=== PATIENT | female | born 1990 | race Caucasian/White ===

== ENCOUNTER 2018-05-10 18:44 | Emergency (ER) | payer OTHER ==
[2018-05-10 18:51] VITALS: BP 109/67; PULSE 78; TEMP 98.2; BMI 25.1
[2018-05-10] MEDS ORDERED: METOCLOPRAMIDE HCL INJECTION 10 MG/2 ML VIAL IVPUSH ONE (19:30)
[2018-05-10] MEDS ORDERED: SODIUM CHLORIDE 1,000 ML IV STA (19:30)
[2018-05-10] MEDS ORDERED: ACETAMINOPHEN 1000 MG/100 ML VIAL (NON FORMULARY) IVPB ONE (19:30)
--- NOTE | 2018-05-10 19:36 | PDOC ---
Attending Attestation - HPI HPI: 05/10/18 19:43 The patient is a 27 year old 2 months female A0, with no significant past medical history, who presents to the emergency department with , sudden onset left sided suprapubic pain with an associated bitemporal headache. She denies any abnormal vaginal discharge or vaginal bleeding. Allergies: NKDA Next PIECE HAND Appt: 05/17 <Davis Gordon - Last Filed: 05/10/18 19:43> - Resident Resident Name: Ryan Desir - ED Attending Attestation I have performed the following: I have examined & evaluated the patient, The case was reviewed & discussed with the resident, I agree w/resident's findings & plan, Exceptions are as noted - Physicial Exam PE: 05/10/18 21:54 Agree with detailed exam as documented by resident - Medical Decision Making 05/10/18 21:55 Well appearing 27F, , no bleeding, discharge, masses, adnexal tenderness r/o ectopic, torsion, less likely infectious TVUS showing IUP labs unremarkable, Rh+ TVUS with iup dc with heel builder f/u <Bryon Andrew - Last Filed: 05/10/18 21:56> Attestations - Attestations 05/10/18 19:44 Documentation prepared by Davis Gordon, acting as er medical technician for Bryon Andrew MD. <Davis Gordon - Last Filed: 05/10/18 19:43>
[2018-05-10] MEDS ORDERED: METOCLOPRAMIDE HCL INJECTION 10 MG/2 ML VIAL ONE ×2 (19:52→20:26)
[2018-05-10] MEDS ORDERED: ACETAMINOPHEN INJECTION 100 ML IVPB ONE (19:53)
[2018-05-10 20:11] LABS: BASO % 0.3 % (0-2.0); EOS % 0.7 % (0-4.5); HEMATOCRIT 37.5 % (32.4-45.2); HEMOGLOBIN 12.5 GM/dL (10.7-15.3); LYMPH % 23.7 % (8-40); MCH 28.6 pg (25.7-33.7); MCHC 33.4 g/dl (32.0-36.0); MEAN CELL VOLUME 85.5 fl (80-96); MEAN PLT VOLUME 9.3 fl (7.5-11.1); MONO % 5.3 % (3.8-10.2); PLATELET COUNT 187 K/MM3 (134-434); RBC 4.38 M/mm3 (3.60-5.2); RDW 13.5 % (11.6-15.6); WHITE BLOOD COUNT 7.6 K/mm3 (4.0-10.0)
--- NOTE | 2018-05-10 20:21 | PDOC ---
History of Present Illness - General Chief Complaint: Pain Stated Complaint: TWO MONTHS/FEVER Time Seen by Provider: 05/10/18 19:14 History Source: Patient Exam Limitations: No Limitations - History of Present Illness Initial Comments: 05/10/18 20:15 Patient is a 27F with history of appendectomy here today complaining of lower abdominal pain that started yesterday. Patient states she took a home test 4 days ago. Patient denies vaginal bleeding, vaginal discharge. Patient was recently tested for STDs, was normal. Has ob follow up on 05/[address] Trupti Steele. Endorses nausea, vomited yesterday. Denies fevers, endorses chills. Patient also complains of a headache worse in her bilateral temples with no vision changes. Last bowel movement yesterday. Past History - Past Medical History Allergies/Adverse Reactions: Allergies Allergy/AdvReac Type Severity Reaction Status Date / Time No Known Allergies Allergy Verified 05/10/18 18:51 Home Medications: Ambulatory Orders NK [No Known Home Medication] 05/10/18 COPD: No - Reproductive History Is Patient Now?: Yes Therapeutic (s) & number: No - Suicide/Smoking/Psychosocial Hx Smoking History: Never smoked Information on smoking cessation initiated: No Hx Alcohol Use: No Drug/Substance Use Hx: No Review of Systems - Review of Systems Able to Perform ROS?: Yes Comments:: 05/10/18 20:21 GENERAL/CONSTITUTIONAL: No fever or chills. No weakness. HEAD, EYES, EARS, NOSE AND THROAT: No change in vision. No sore throat. CARDIOVASCULAR: No chest pain or shortness of breath RESPIRATORY: No cough, wheezing, or hemoptysis. GASTROINTESTINAL: +nausea, +vomiting, no diarrhea or constipation. GENITOURINARY: No dysuria, frequency, or change in urination. MUSCULOSKELETAL: No joint or muscle swelling or pain. No neck or back pain. SKIN: No rash NEUROLOGIC: +headache, no vertigo, loss of consciousness, or change in strength/ sensation. ALLERGIC/IMMUNOLOGIC: No hives or skin allergy. *Physical Exam - Vital Signs Last Vital Signs Temp Pulse Resp BP Pulse Ox 98.2 F 78 17 109/67 100 05/10/18 18:49 05/10/18 18:49 05/10/18 18:49 05/10/18 18:49 05/10/18 18:49 - Physical Exam Comments: 05/10/18 20:22 GENERAL: Awake, alert, and fully oriented, in no acute distress PELVIC: Normal external genitalia, no cmt, normal discharge, no blood, closed os , no adnexal masses/tenderness HEAD: No signs of trauma, normocephalic, atraumatic EYES: PERRLA, EOMI, sclera anicteric, conjunctiva clear ENT: Auricles normal inspection, hearing grossly normal, nares patent, oropharynx clear without exudates. Moist mucosa NECK: Normal ROM, supple, no lymphadenopathy, JVD, or masses LUNGS: No distress, speaks full sentences, clear to auscultation bilaterally HEART: Regular rate and rhythm, normal S1 and S2, no murmurs, rubs or gallops, peripheral pulses normal and equal bilaterally. ABDOMEN: Soft, mild suprapubic tenderness, normoactive bowel sounds. No guarding, no rebound. No masses EXTREMITIES: Normal inspection, Normal range of motion, no edema. No clubbing or cyanosis. NEUROLOGICAL: Cranial nerves II through XII grossly intact. Normal speech, normal gait, no focal sensorimotor deficits SKIN: Warm, Dry, normal turgor, no rashes or lesions noted. ED Treatment Course - LABORATORY CBC & Chemistry Diagram: 05/10/18 19:47 05/10/18 19:47 - RADIOLOGY Radiology Studies Ordered: Category Date Time Status TRANSVAGINAL US PREG [US] Stat Ultrasound 05/10/18 19:32 Ordered - Medications Given in the ED: ED Medications Discontinued Medications Generic Name Dose Route Start Last Admin Trade Name Darriusq PRN Reason Stop Dose Admin Acetaminophen 1,000 mg 05/10/18 19:30 05/10/18 19:59 Ofirmev Injection - IVPB 05/10/18 19:31 1,000 mg ONCE ONE Administration Metoclopramide HCl 10 mg 05/10/18 19:30 05/10/18 19:59 Reglan Injection - IVPUSH 05/10/18 19:31 10 mg ONCE ONE Administration Medical Decision Making - Medical Decision Making 05/10/18 20:23 Patient is 27F with history of appendectomy here today complaining of suprapubic abdominal pain. Vitals normal and stable. Mild tenderness on exam, normal pelvic. DDx includes, but is not limited to: ectopic, uti, ovarian cyst. Will treat with tylenol and reglan, fluids. Will evaluate with cbc, cmp, lipase , ua/uc, tvus, t&s. Likely discharge. 05/10/18 21:23 CBC normal. CMP normal. Lipase normal. UA normal. Transvaginal US shows IUP 10w0d, 2.2cm l ovarian cyst. Patient reassessed, feels well, asking to go home, nontender abdomen. Will discharge to OB follow up. *DC/Admit/Observation/Transfer Diagnosis at time of Disposition: , Abdominal pain - Discharge Dispostion Disposition: HOME Condition at time of disposition: Good Decision to Admit order: No - Referrals - Patient Instructions Printed Discharge Instructions: DI for Abdominal Pain -- Early Additional Instructions: Please follow up with your OBGYN doctor this week. Please return if you have any new, worsening or concerning symptoms, especially fever, increasing pain, and vomiting. Por favor josé un seguimiento con brizuela doctor OBGYN esta semana. Regrese si tiene sntomas nuevos, que empeoran o estn relacionados, especialmente fiebre, dolor en aumento y vmitos. - Post Discharge Activity
[2018-05-10 20:58] LABS: URINE APPEARANCE CLEAR; URINE BILIRUBIN NEGATIVE (NEGATIVE); URINE COLOR YELLOW; URINE GLUCOSE (UA) NEGATIVE (NEGATIVE); URINE KETONE NEGATIVE (NEGATIVE); URINE LEUK ESTERASE NEGATIVE (NEGATIVE); URINE NITRITE NEGATIVE (NEGATIVE); URINE PROTEIN NEGATIVE (NEGATIVE); URINE UROBILINOGEN 0.2 mg/dL (0.2-1.0)
[2018-05-10 21:11] LABS: ALBUMIN 3.6 g/dl (3.4-5.0); ALK PHOS 59 U/L (45-117); ANION GAP 10 MMOL/L (8-16); BILIRUBIN,TOTAL 0.2 mg/dL (0.2-1); BLOOD UREA NITROGEN 4 mg/dL (7-18); CALCIUM 8.9 mg/dL (8.5-10.1); CHLORIDE 104 mmol/L (98-107); CO2 23 mmol/L (21-32); CREATININE 0.4 mg/dL (0.55-1.3); GLUCOSE,RANDOM 87 mg/dL (74-106); LIPASE 120 U/L (73-393); POTASSIUM 3.8 mmol/L (3.5-5.1); SGOT/AST 10 U/L (15-37); SGPT/ALT 16 U/L (13-61); SODIUM 137 mmol/L (136-145); TOT PROT 7.3 g/dl (6.4-8.2)
--- NOTE | 2018-05-11 10:30 | EKG ---
Test Reason : Blood Pressure : / mmHG Vent. Rate : 063 BPM Atrial Rate : 063 BPM P-R Int : 154 ms QRS Dur : 068 ms QT Int : 448 ms P-R-T Axes : 066 022 017 degrees QTc Int : 458 ms NORMAL SINUS RHYTHM NORMAL ECG NO PREVIOUS ECGS AVAILABLE Confirmed by MEIR CHAVIRA MD ([id number]) on 05/11/2018 10:29:42 AM Referred By: Confirmed By:MEIR CHAVIRA MD
== END 2018-05-10 21:32 | disposition home or self-care (01) ==
LOC: JER 18:44
PROC: 3E033GC Introduction of Other Therapeutic Substance into Peripheral Vein, Percutaneous Approach (ICD-10-PCS; principal; 2018-05-10)
PROC: 3E033NZ Introduction of Analgesics, Hypnotics, Sedatives into Peripheral Vein, Percutaneous Approach (ICD-10-PCS; 2018-05-10)
DX: O26.891 Other specified pregnancy related conditions, first trimester (principal); O34.81 Maternal care for other abnormalities of pelvic organs, first trimester; N83.292 Other ovarian cyst, left side; Z3A.10 10 weeks gestation of pregnancy
CPT/HCPCS: 36415; 76801-TC; 80053; 81003; 83690; 84702; 85025; 86850; 86900; 86901; 87086; 93005; 93010; 99283-25; J0131; J7030

== ENCOUNTER 2018-07-13 17:01 | Emergency (ER) | payer OTHER ==
--- NOTE | 2018-07-13 17:20 | PDOC ---
History of Present Illness - General Chief Complaint: Pain Stated Complaint: ABD PAIN Time Seen by Provider: 07/13/18 17:20 History Source: Patient Exam Limitations: Language Barrier - History of Present Illness Initial Comments: 07/13/18 17:55 HPI/ROS performed with phone lead electrician [id number] 27 year old female with no PMH A0 presented to ED for left sided pelvic pain x2 days and headache x5 days. Pt stated her pelvic pain is intermittent, pressure like, no alleviating or aggravating factors, no radiation. Pt denied vaginal discharge, vaginal bleeding, dysuria, nausea, vomiting, diarrhea, constipation. Pt stated her headache has been constant, located to the front of her head, band like, gradual in onset, no aggravating or alleviating factors. Pt stated she has been taking tylenol for her headache with no relief. Pt has OB follow up at [facility] but does not know the name of her doctor. Allergies: NKDA PSH: appendectomy Past History - Past Medical History Allergies/Adverse Reactions: Allergies Allergy/AdvReac Type Severity Reaction Status Date / Time No Known Allergies Allergy Verified 07/13/18 17:21 Home Medications: Ambulatory Orders Clotrimazole [Clotrimazole-7] 45 gm VG DAILY #3 cream.appl 07/13/18 COPD: No - Reproductive History Therapeutic (s) & number: No - Suicide/Smoking/Psychosocial Hx Smoking History: Never smoked Hx Alcohol Use: No Drug/Substance Use Hx: No Review of Systems - Review of Systems Able to Perform ROS?: Yes Comments:: 07/13/18 17:58 General: denied fever, chills, generalized weakness. HEENT: denied sore throat, rhinorrhea, ear pain. Heart: denied chest pain, palpitations, syncope, diaphoresis. Respiratory: denied shortness of breath, cough, sputum production, hemoptysis. Abdomen: denied abdominal pain, nausea, vomiting, diarrhea, constipation, blood in stool. : admitted to pelvic pain. denied dysuria, increased urinary frequency, hematuria, urinary incontinence, flank pain. Back: denied back pain. Musculoskeletal: denied joint pain, muscle pain, joint swelling. Neurological: admitted to headache. denied dizziness, numbness, tingling, weakness. Skin: denied rash, laceration, abrasion. *Physical Exam - Physical Exam Comments: 07/13/18 17:59 Constitutional: Well-nourished, Well-developed, appearing stated age. HEENT: head is normocephalic, atraumatic. EOMI. PERRLA. Neck: supple. Full ROM. Heart: regular rhythm. no murmurs, rubs or gallops. Lungs: clear to auscultation bilaterally. no crackles, rhonchi or wheezing. no stridor. Abdomen: soft, nontender. normal bowel sounds. no rebound, guarding, masses. pelvic: normal external genitalia. hypervascularized cervix. cervical os closed. white cottage cheese like discharge. no CMT. left sided adnexal tenderness. Extremities: peripheral pulses intact. no lower extremity edema. Neurological: CN 2-12 grossly intact. moves all four extremities. Psych: awake, alert, oriented x3. follows commands. answers questions appropriately. ED Treatment Course - LABORATORY CBC & Chemistry Diagram: 07/13/18 19:35 07/13/18 17:28 Medical Decision Making - Medical Decision Making 07/13/18 18:00 27 year old female with above PMH presented to ED for left sided pelvic pain and headache. Initial Vital Signs Temp Pulse Resp BP Pulse Ox 97.6 F 81 16 98/70 100 07/13/18 17:05 07/13/18 17:05 07/13/18 17:05 07/13/18 17:05 07/13/18 17:05 Afebrile. No tachycardia. No tachypnea. Mild hypotension, consistent with . No hypoxia on room air. Labs ordered: CBC, CMP, lipase, UA/UC Imaging ordered: TVUS Medications ordered: normal saline 1000 cc bolus, tylenol IV, reglan 10 mg IV 07/13/18 19:12 CMP Sodium 136 mmol/L (136-145) 07/13/18 17:28 Potassium 3.7 mmol/L (3.5-5.1) 07/13/18 17:28 Chloride 106 mmol/L (98-107) 07/13/18 17:28 Carbon Dioxide 22 mmol/L (21-32) 07/13/18 17:28 Anion Gap 8 MMOL/L (8-16) 07/13/18 17:28 BUN 8 mg/dL (7-18) 07/13/18 17:28 Creatinine 0.4 mg/dL (0.55-1.3) L 07/13/18 17:28 Est GFR (CKD-EPI)AfAm 164.28 07/13/18 17:28 Est GFR (CKD-EPI)NonAf 141.74 07/13/18 17:28 Random Glucose 94 mg/dL (74-106) 07/13/18 17:28 Calcium 8.7 mg/dL (8.5-10.1) 07/13/18 17:28 Total Bilirubin 0.2 mg/dL (0.2-1) 07/13/18 17:28 AST 12 U/L (15-37) L 07/13/18 17:28 ALT 20 U/L (13-61) 07/13/18 17:28 Alkaline Phosphatase 45 U/L (45-117) 07/13/18 17:28 Total Protein 6.3 g/dl (6.4-8.2) L 07/13/18 17:28 Albumin 3.1 g/dl (3.4-5.0) L 07/13/18 17:28 Lipase 129 U/L (73-393) 07/13/18 17:28 No electrolyte abnormalities. No AGUILA. No transaminitis. Lipase within normal limits. TVUS report: Clinical information: 19 weeks , pelvic pain The exam demonstrates a single viable intrauterine gestation at approximately 19 weeks 0 days cardiac rate 158 BPM. Posterior placenta without previa. Amniotic fluid volume appears unremarkable on a qualitative basis. The partially visualized structures demonstrate no gross sonographic abnormality. The cervix appears to be closed measuring approximately 3.6 cm in length. Impression : Single viable intrauterine gestation at approximately 19 weeks 0 days. No definite sonographic abnormality is identified. Urine Test Results Urine Color Yellow 07/13/18 17:33 Urine Appearance Clear 07/13/18 17:33 Urine pH 7.5 (5.0-8.0) D 07/13/18 17:33 Ur Specific Stanton 1.006 (1.010-1.035) L 07/13/18 17:33 Urine Protein Negative (NEGATIVE) 07/13/18 17:33 Urine Glucose (UA) Negative (NEGATIVE) 07/13/18 17:33 Urine Ketones Negative (NEGATIVE) 07/13/18 17: Urine Blood Negative (NEGATIVE) 07/13/18 17: Urine Nitrite Negative (NEGATIVE) 07/13/18 17:33 Urine Bilirubin Negative (NEGATIVE) 07/13/18 17:33 Ur Leukocyte Esterase Negative (NEGATIVE) 07/13/18 17:33 No UTI. No hematuria. No proteinuria. 07/13/18 19:56 CBC WBC 8.7 K/mm3 (4.0-10.0) 07/13/18 19:35 Corrected WBC (auto) Cancelled 07/13/18 17:28 RBC 3.64 M/mm3 (3.60-5.2) 07/13/18 19:35 Hgb 10.6 GM/dL (10.7-15.3) L 07/13/18 19:35 Hct 31.5 % (32.4-45.2) L D 07/13/18 19:35 MCV 86.6 fl (80-96) 07/13/18 19:35 MCH 29.1 pg (25.7-33.7) 07/13/18 19:35 MCHC 33.6 g/dl (32.0-36.0) 07/13/18 19:35 RDW 13.5 % (11.6-15.6) 07/13/18 19:35 Plt Count 170 K/MM3 (134-434) 07/13/18 19:35 MPV 9.1 fl (7.5-11.1) 07/13/18 19:35 Absolute Neuts (auto) 6.5 K/mm3 (1.5-8.0) 07/13/18 19:35 Neutrophils % 74.9 % (42.8-82.8) 07/13/18 19:35 Lymphocytes % 17.9 % (8-40) D 07/13/18 19:35 Monocytes % 6.1 % (3.8-10.2) 07/13/18 19:35 Eosinophils % 0.7 % (0-4.5) 07/13/18 19:35 Basophils % 0.4 % (0-2.0) 07/13/18 19:35 Nucleated RBC % 0 % (0-0) 07/13/18 19:35 Platelet Estimate Cancelled 07/13/18 17:28 Platelet Comment Cancelled 07/13/18 17:28 No leukocytosis. No anemia. 07/13/18 21:31 Pt reported 0/10 headache, requesting discharge. Pt discharged. *DC/Admit/Observation/Transfer Diagnosis at time of Disposition: Headache, Pelvic pain, Vaginal yeast infection - Discharge Dispostion Condition at time of disposition: Stable Decision to Admit order: No - Prescriptions Prescriptions: Clotrimazole [Clotrimazole-7] 45 gm VG DAILY #3 cream.appl - Referrals - Patient Instructions Printed Discharge Instructions: DI for Vaginal Yeast Infection, DI for Headache Additional Instructions: You were seen today for pelvic pain and headache. You lab work was normal. Your ultrasound was normal. Follow up with your OBGYN within 3 days. Your care is not complete until you follow up. Bring all paperwork to your appointment. You likely have a vaginal yeast infection. I have sent a prescription to your pharmacy. Take Tylenol over the counter for your pain. Take as advised on label. Return to the Emergency Department for increasing pain, weakness, numbness, chest pain, shortness of breath, neck stiffness, vaginal bleeding, vaginal discharge or any other new, worsening or concerning symptoms. Hoy te vieron por dolor plvico y dolor de baltazar. Tu trabajo de laboratorio era normal. Brizuela ultrasonido fue normal. Amalia un seguimiento con brizuela gineclogo dentro de los 3 briones. Brizuela atencin no est completa hasta que amalia un seguimiento. Traiga toda la documentacin a brizuela raúl. Es probable que tenga uri infeccin vaginal por levaduras. He enviado uri receta a brizuela farmacia. Dawn Tylenol sobre el mostrador para brizuela dolor. Nirav stephie se indica en la etiqueta. Regrese al Departamento de Emergencias para aumentar el dolor, la debilidad, el adormecimiento, el dolor en el pecho, la falta de aliento, la rigidez del mariah , el sangrado vaginal, el flujo vaginal o cualquier otro sntoma nuevo o que empeore. Print Language: [place]ICAN CITIZEN - Post Discharge Activity Forms/Work/School Notes: Back to Work
[2018-07-13 17:21] VITALS: BMI 24.1
[2018-07-13] MEDS ORDERED: ACETAMINOPHEN 1000 MG/100 ML VIAL (NON FORMULARY) IVPB ONE (17:22)
[2018-07-13] MEDS ORDERED: SODIUM CHLORIDE 1,000 ML IV STA (17:22)
[2018-07-13] MEDS ORDERED: ACETAMINOPHEN INJECTION 100 ML IVPB ONE (18:05)
[2018-07-13 18:22] LABS: ALBUMIN 3.1 g/dl (3.4-5.0); BILIRUBIN,TOTAL 0.2 mg/dL (0.2-1); CALCIUM 8.7 mg/dL (8.5-10.1); CREATININE 0.4 mg/dL (0.55-1.3); POTASSIUM 3.7 mmol/L (3.5-5.1); TOT PROT 6.3 g/dl (6.4-8.2)
[2018-07-13 18:24] LABS: PH,URINE 7.5 (5.0-8.0); URINE APPEARANCE CLEAR; URINE BILIRUBIN NEGATIVE (NEGATIVE); URINE COLOR YELLOW; URINE GLUCOSE (UA) NEGATIVE (NEGATIVE); URINE KETONE NEGATIVE (NEGATIVE); URINE LEUK ESTERASE NEGATIVE (NEGATIVE); URINE NITRITE NEGATIVE (NEGATIVE); URINE PROTEIN NEGATIVE (NEGATIVE); URINE UROBILINOGEN 0.2 mg/dL (0.2-1.0)
[2018-07-13 19:41] VITALS: BP 93/60; PULSE 69; TEMP 98
[2018-07-13 19:47] LABS: BASO % 0.4 % (0-2.0); EOS % 0.7 % (0-4.5); HEMATOCRIT 31.5 % (32.4-45.2); HEMOGLOBIN 10.6 GM/dL (10.7-15.3); LYMPH % 17.9 % (8-40); MCH 29.1 pg (25.7-33.7); MCHC 33.6 g/dl (32.0-36.0); MEAN CELL VOLUME 86.6 fl (80-96); MEAN PLT VOLUME 9.1 fl (7.5-11.1); MONO % 6.1 % (3.8-10.2); NEUT % 74.9 % (42.8-82.8); PLATELET COUNT 170 K/MM3 (134-434); RBC 3.64 M/mm3 (3.60-5.2); RDW 13.5 % (11.6-15.6); WHITE BLOOD COUNT 8.7 K/mm3 (4.0-10.0)
[2018-07-13] MEDS ORDERED: METOCLOPRAMIDE HCL INJECTION 10 MG/2 ML VIAL IVPUSH ONE (19:59)
[2018-07-13] MEDS ORDERED: METOCLOPRAMIDE HCL INJECTION 10 MG/2 ML VIAL ONE (20:58)
--- NOTE | 2018-07-14 03:01 | PDOC ---
Documentation entered by Davis Gordon SCRIBE, acting as scribe for Kylee Proctor MD. Kylee Proctor MD: This documentation has been prepared by the Heidi lopez Nirvannie, SCRIBE, under my direction and personally reviewed by me in its entirety. I confirm that the documentation accurately reflects all work, treatment, procedures, and medical decision making performed by me. Attending Attestation - Resident Resident Name: Marion Obrien - ED Attending Attestation I have performed the following: I have examined & evaluated the patient, The case was reviewed & discussed with the resident, I agree w/resident's findings & plan, Exceptions are as noted - HPI HPI: 07/13/18 19:27 The patient is a 27 year old 19 weeks female A0, with no significant past medical history, who presents to the emergency department with , 2 days of intermittent, pressure-like, left sided groin pain with associated 5 days of constant, band-like, gradual onset, frontal headache. Patient notes using Tylenol without relief, prompting her arrival to the ED. Denies vaginal bleeding or discharge. Pt has had care, no complications to this thus far. She denies recent fevers, chills, headache or dizziness. She denies recent nausea, vomit, diarrhea or constipation. She denies recent dysuria, frequency, urgency or hematuria. She denies recent chest pain or shortness of breath. Denies focal weakness/numbness. 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 - Physicial Exam PE: 07/13/18 19:27 GENERAL: Awake, alert, and fully oriented, in no acute distress HEAD: No signs of trauma EYES: PERRLA, EOMI, sclera anicteric, conjunctiva clear ENT: Oropharynx clear without exudates. Moist mucosa NECK: Normal ROM, supple LUNGS: Breath sounds equal, clear to auscultation bilaterally. No wheezes, and no crackles HEART: Regular rate and rhythm, normal S1 and S2, no murmurs, rubs or gallops ABDOMEN: Soft, gravid consistent with dates, non tender PELVIC: as per Dr. Obrien EXTREMITIES: Normal range of motion, no edema. No cords, erythema, or tenderness NEUROLOGICAL: Normal speech, cranial nerves intact, negative pronator drift, 5/ 5 strength in all 4 extremities, normal sensation to light touch in all 4 extremities, normal cerebellar exam, normal gait SKIN: Warm, Dry, normal turgor, no rashes or lesions noted. - Medical Decision Making 07/13/18 21:27 27yo F presents to the ED with L sided groin pain and headache. Groin pain is most consistent with round ligament pain as pt is in 2nd trimester and pain is intermittent. No pelvic or abd ttp on my exam Headache resolved completely with IV tylenol, fluids, reglan No red flags, not thunderclap, pt is neuro intact Pt requesting DC home, will f/u with OB I discussed the physical exam findings, ancillary test results and final diagnoses with the patient. I answered all of the patient's questions. The patient was satisfied with the care received and felt comfortable with the discharge plan and treatment plan. The patient will call their primary care physician within 24 hours to arrange follow-up and will return to the Emergency Department with any new, persistent or worsening symptoms.
== END 2018-07-13 21:43 | disposition home or self-care (01) ==
LOC: JER 17:01
PROC: 3E033NZ Introduction of Analgesics, Hypnotics, Sedatives into Peripheral Vein, Percutaneous Approach (ICD-10-PCS; principal; 2018-07-13)
PROC: 3E033GC Introduction of Other Therapeutic Substance into Peripheral Vein, Percutaneous Approach (ICD-10-PCS; 2018-07-13)
DX: O26.892 Other specified pregnancy related conditions, second trimester (principal); O98.812 Other maternal infectious and parasitic diseases complicating pregnancy, second trimester; B37.49 Other urogenital candidiasis; R51 Headache; Z3A.19 19 weeks gestation of pregnancy
CPT/HCPCS: 36415; 76815-TC; 80053; 81003; 83690; 85025; 87086; 96374; 96375; 99281-25; J0131; J7030

== ENCOUNTER 2018-08-22 11:15 | Inpatient (IN) | payer OTHER ==
[2018-08-23 00:09] LABS: BASO % 0.6 % (0-2.0); EOS % 0.5 % (0-4.5); HEMATOCRIT 33.6 % (32.4-45.2); HEMOGLOBIN 11.3 GM/dL (10.7-15.3); MCH 28.8 pg (25.7-33.7); MCHC 33.6 g/dl (32.0-36.0); MEAN CELL VOLUME 85.9 fl (80-96); MEAN PLT VOLUME 8.4 fl (7.5-11.1); MONO % 5.9 % (3.8-10.2); PLATELET COUNT 217 K/MM3 (134-434); RBC 3.92 M/mm3 (3.60-5.2); RDW 13.9 % (11.6-15.6)
[2018-08-23 00:23] LABS: INR 0.87 (0.83-1.09); PROTHROMBIN TIME (PATIENT) 10.3 SEC (9.7-13.0)
[2018-08-23 00:26] LABS: ACTIVATED PTT 27.8 SECONDS (25.2-36.5)
[2018-08-23 00:30] LABS: BLOOD UREA NITROGEN 5.6 mg/dL (7-18); CALCIUM 8.4 mg/dL (8.5-10.1); CREATININE 0.4 mg/dL (0.55-1.3); POTASSIUM 3.7 mmol/L (3.5-5.1)
[2018-08-23 00:38] VITALS: BMI 26.5
[2018-08-23] MEDS ORDERED: BETAMET ACET/BETAMET NA PH 30 MG/5 ML VIAL IM ONE (00:54)
[2018-08-23] MEDS ORDERED: MAGNESIUM SULF 50% (8.12 MEQ/2 ML-1 GM VIAL) IVPB ONE (00:55)
[2018-08-23] MEDS ORDERED: AMPICILLIN - 2 GM in SODIUM CHLORIDE 100 ML IVPB ONE (00:56)
[2018-08-23] MEDS ORDERED: MAGNESIUM 4GM/H20 - 4 GM/100 ML IVPB IVPB SCH (01:00)
[2018-08-23] MEDS ORDERED: MAGNESIUM SULFATE 20GM/500ML - 20 GM/500 ML INFUS.BAG IV SCH (01:00)
[2018-08-23] MEDS ORDERED: DEXTROSE 5%-LACTATED RINGERS 1,000 ML IV SCH (01:00)
[2018-08-23] MEDS ORDERED: AMPICILLIN SODIUM 2 GM VIAL ONE (01:01)
--- NOTE | 2018-08-23 01:09 | HP ---
Past Medical History - Admission Chief Complaint: Leakage of fluid History of Present Illness: 27yo @ 25.6wks here with leakage of fluid this evening 10pm. No VB. No ctx. +FM Preg uncomplicated. PNC @ [address] Prior x 1, no complications History Source: Patient Limitations to Obtaining History: Language Barrier - Past Medical History [employer] T[employer] CONSULTANT: No: Alzheimer's, CVA, Dementia, Migraine, Multiple Sclerosis, Peripheral Neuropathy, Parkinson's, Seizure, Syncope, TIA, Vertigo, Other Cardiovascular: No: AFIB, Aneurysm, Aortic Insufficiency, Aortic Stenosis, CAD, CHF, Deep Vein Thrombosis, HTN, Hyperlipdemia, AL, Mitral Insufficiency, Mitral Stenosis, Murmur, Pulmonary Hypertension, Other Pulmonary: No: Asthma, Bronchitis, Cancer, COPD, O2 Dependent, Pneumonia, Previously Intubated, Pulmonary Embolus, Pulmonary Fibrosis, Sleep Apnea, Other Gastrointestinal: No: Ascites, Cancer, Constipation, Crohn's Disease, Diverticulitis, Diverticulosis, Esophageal Varices, Gastritis, GERD, GI Bleed, Hemorrhoids, Hiatal Hernia, Inflamatory Bowel Disease, Irritable Bowel Disease, Pancreatitis, Peptic Ulcer Disease, Ulcerative Colitis, Other Hepatobiliary: No: Cirrhosis, Cholelithiasis, Cholecystitis, Choledocholithiasis , Hepatitis A, Hepatitis B, Hepatitis C, Other Renal/: No: Renal Failure, Renal Inusuff, BPH, Cancer, Hematuria, Hemodialysis , Neurogenic Bladder, Renal Calculi, UTI, Other Reproductive: No: Ectopic , Endometriosis, Fibroids, PID, Polycystic Ovary Syndrome, Postmenopausal, Other ...: 2 ...Para: 1 ...Term: 1 ...: 0 ...Spon : 0 ...Induced : 0 ...Multiple Gestation: 0 ...LMP: 03/01/18 ... Weeks Gestation by Dates: 25.6 ...EDC by Sono: 12/06/18 Heme/Onc: Yes: Anemia - Past Surgical History Past Surgical History: Yes: None, Appendectomy Hx Myomectomy: No Hx Transabdominal Cerclage: No - Smoking History Smoking history: Never smoked Have you smoked in the past 12 months: No - Alcohol/Substance Use Hx Alcohol Use: No History of Substance Use: reports: None - Social History Usual Living Arrangement: Yes: With Spouse ADL: Independent History of Recent Travel: No Home Medications - Allergies Allergies/Adverse Reactions: Allergies Allergy/AdvReac Type Severity Reaction Status Date / Time No Known Allergies Allergy Verified 07/13/18 17:21 - Home Medications Home Medications: Ambulatory Orders Clotrimazole [Clotrimazole-7] 45 gm VG DAILY #3 cream.appl 07/13/18 Physical Exam - Maternity Vital Signs: Vital Signs Temperature 97.7 F 08/22/18 23:30 Pulse Rate 75 08/22/18 23:30 Respiratory Rate 20 08/22/18 23:30 Blood Pressure 121/69 08/22/18 23:30 O2 Sat by Pulse Oximetry (%) Constitutional: Yes: Well Nourished, No Distress, Calm Eyes: Yes: WNL, Conjunctiva Clear, EOM Intact HENT: Yes: WNL, Atraumatic, Normocephalic Neck: Yes: WNL, Supple, Trachea Midline Cardiovascular: Yes: WNL, Regular Rate and Rhythm Breast(s): Yes: WNL - Abdominal Exam/OB Number of Fetuses: Single Presentation: Breech Contractions: No Category: I Accelerations: Non-Uniform Decelerations: None - Vaginal Exam/OB Vaginal Bleediing: No Speculum Exam: Yes (grossly ruptured, + pooling, +nitrazine) Dilatation (cm): 0 Effacement (%): 0 Amniotic Membrane Status: Ruptured Nitrazine Test: Positive Amniotic Fluid: Yes: Clear Presentation: [place] Breech Station: -3 - Physical Exam Edema: No - Labs Lab Results: CBC, BMP 08/22/18 23:59 08/22/18 23:59 Assessment/Plan 27yo @ 25.6wks here with PPROM Admit to L&D NPO, IVFs, admission labs Amp/Azithro; GBS pos by previous urine culture BMZ now, repeat in 24 hours Mag for neuroprotection Case discussed with attending at [facility], whom accepts transfer of care Patient counseled on risk of PPROM, including high risk for imminent/ delivery (thus requiring level III NICU), infection, placental abruption, need for C/S- given Breech presentation. Anali Leal MD
[2018-08-23] MEDS ORDERED: AZITHROMYCIN IVPB 500 MG in DEXTROSE 5%-WATER - 250 ML IVPB ONE (01:15)
[2018-08-23 01:19] VITALS: BP 112/66; PULSE 78; TEMP 98.5
--- NOTE | 2018-08-23 01:45 | DS ---
Physical Examination Vital Signs: Vital Signs Temperature 98.5 F 08/23/18 01:00 Pulse Rate 78 08/23/18 01:00 Respiratory Rate 20 08/23/18 01:00 Blood Pressure 112/66 08/23/18 01:00 O2 Sat by Pulse Oximetry (%) Constitutional: Yes: Well Nourished, No Distress, Calm Eyes: Yes: WNL, Conjunctiva Clear, EOM Intact HENT: Yes: WNL, Atraumatic, Normocephalic Neck: Yes: WNL, Supple, Trachea Midline Cardiovascular: Yes: WNL, Regular Rate and Rhythm Respiratory: Yes: WNL, Regular, CTA Bilaterally Gastrointestinal: Yes: WNL, Normal Bowel Sounds Musculoskeletal: Yes: WNL Extremities: Yes: WNL Edema: No Integumentary: Yes: WNL Neurological: Yes: WNL, Alert, Oriented ...Motor Strength: WNL Psychiatric: Yes: WNL Labs: CBC, BMP 08/22/18 23:59 08/22/18 23:59 Discharge Summary Reason For Visit: LABOR ADMIT PPROM Hospital Course: 27yo @ 25.6wks by fernando who presented with LOF, found to be ruptured consistent with PPROM Admitted to L&D for administration of BMZ, magnesium for neuroprotection and antibiotics (known GBS positive). She was subsequently transferred to [facility] for care given the prematurity of her . Risk of PPROM reviewed with patient, in addition to treatment. All questions answered. She was accepted for transfer at [facility]. Anali Leal MD Condition: Stable - Instructions - Home Medications Comprehensive Discharge Medication List: Ambulatory Orders Clotrimazole [Clotrimazole-7] 45 gm VG DAILY #3 cream.appl 07/13/18
== END 2018-08-23 02:30 | disposition short-term general hospital (02) | DRG 566 ==
LOC: JLDR 11:15
PROVIDERS: ADMIT Obstetrics & Gynecology; ATTEND Obstetrics & Gynecology
DX: O42.012 Preterm premature rupture of membranes, onset of labor within 24 hours of rupture, second trimester (principal); O99.820 Streptococcus B carrier state complicating pregnancy; O32.1XX0 Maternal care for breech presentation, not applicable or unspecified; Z3A.25 25 weeks gestation of pregnancy
CPT/HCPCS: 36415; 80048; 85025; 85610; 85730; 86593; 86850; 86900; 86901; 96372

== ENCOUNTER 2020-07-09 04:47 | Emergency (ER) | payer OTHER ==
[2020-07-09 05:10] VITALS: BMI 26.9
[2020-07-09] MEDS ORDERED: ACETAMINOPHEN 1000 MG/100 ML BAG IVPB ONE (05:17)
[2020-07-09] MEDS ORDERED: METOCLOPRAMIDE HCL INJECTION 10 MG/2 ML VIAL IVPB ONE (05:19)
[2020-07-09] MEDS ORDERED: METOCLOPRAMIDE HCL INJECTION 10 MG/2 ML VIAL ONE (05:31)
[2020-07-09] MEDS ORDERED: ACETAMINOPHEN INJECTION 100 ML IVPB ONE (05:31)
[2020-07-09] MEDS ORDERED: LACTATED RINGERS SOLUTION 1000 ML INFUS.BAG IV ONE (05:34)
[2020-07-09 05:41] LABS: BASO % 2.3 % (0-2.0); EOS % 0.7 % (0-4.5); HEMATOCRIT 37.4 % (32.4-45.2); HEMOGLOBIN 12.5 GM/dL (10.7-15.3); LYMPH % 21.4 % (8-40); MCH 28.7 pg (25.7-33.7); MCHC 33.6 g/dl (32.0-36.0); MEAN CELL VOLUME 85.4 fl (80-96); MEAN PLT VOLUME 8.7 fl (7.5-11.1); MONO % 5.1 % (3.8-10.2); NEUT % 70.5 % (42.8-82.8); PLATELET COUNT 207 K/MM3 (134-434); RBC 4.37 M/mm3 (3.60-5.2); RDW 13.5 % (11.6-15.6); WHITE BLOOD COUNT 6.2 K/mm3 (4.0-10.0)
[2020-07-09 05:51] LABS: EPI CELLS 2 /uL (0-25.1); HCG,QUALITATIVE URINE Negative; HYALINE CASTS 0 /uL (0-3.1); URINE APPEARANCE CLEAR; URINE BACTERIA 14 /uL (0-1359); URINE BILIRUBIN NEGATIVE (NEGATIVE); URINE COLOR YELLOW; URINE GLUCOSE (UA) NEGATIVE (NEGATIVE); URINE KETONE NEGATIVE (NEGATIVE); URINE LEUK ESTERASE NEGATIVE (NEGATIVE); URINE NITRITE NEGATIVE (NEGATIVE); URINE PROTEIN NEGATIVE (NEGATIVE); URINE RBC 1 /uL (0-23.9); URINE UROBILINOGEN 0.2 mg/dL (0.2-1.0); URINE WBC 3 /uL (0-25.8)
[2020-07-09 06:00] LABS: CALCIUM 8.7 mg/dL (8.5-10.1)
[2020-07-09 06:01] LABS: ALBUMIN 3.7 g/dl (3.4-5.0); BLOOD UREA NITROGEN 10.8 mg/dL (7-18)
[2020-07-09 06:04] LABS: CREATININE 0.6 mg/dL (0.55-1.3)
[2020-07-09 06:05] LABS: BILIRUBIN,TOTAL 0.3 mg/dL (0.2-1); TOT PROT 7.1 g/dl (6.4-8.2)
[2020-07-09 11:09] VITALS: BP 106/69; PULSE 60; TEMP 98.5
== END 2020-07-09 11:00 | disposition home or self-care (01) ==
LOC: JER 04:47
PROC: 3E0333Z Introduction of Anti-inflammatory into Peripheral Vein, Percutaneous Approach (ICD-10-PCS; principal; 2020-07-09)
PROC: 3E033GC Introduction of Other Therapeutic Substance into Peripheral Vein, Percutaneous Approach (ICD-10-PCS; 2020-07-09)
DX: R10.11 Right upper quadrant pain (principal)
CPT/HCPCS: 36415; 71046-TC-FY; 76705-TC; 80053; 81003; 83690; 84703; 85025; 87086; 93005; 93010; 99285-25; J0131